=== PATIENT | female | born 1995 | race Hispanic/Latino ===

== ENCOUNTER 2017-04-29 19:33 | Emergency (ER) | payer OTHER ==
--- NOTE | 2017-04-29 20:50 | RAD ---
CHEST PA AND LATERAL TWO VIEWS: 04/29/17 HISTORY: 21-year-old female with cough for three days. Heart size is normal. The lungs are clear. IMPRESSION: No acute intrathoracic disease. No evidence for pneumonia or other acute process. POS: [facility]
== END 2017-04-29 22:26 | disposition home or self-care (01) ==
LOC: ERS 19:33
DX: J20.9 Acute bronchitis, unspecified (principal)
CPT/HCPCS: 71020